=== PATIENT | male | born 1960 | race Caucasian/White ===

== ENCOUNTER 2021-04-18 15:43 | Emergency (ER) | payer BC | END 2021-04-18 18:59 | disposition left against medical advice (07) | LOC: ERS 15:43 | DX: Z53.21 Procedure and treatment not carried out due to patient leaving prior to being seen by health care provider (principal) ==

== ENCOUNTER 2021-04-19 17:39 | Emergency (ER) | payer BC ==
[2021-04-19 19:42] LABS: #Lymphocytes 0.9 thou/uL (1.20-3.40); #Monocytes 0.4 thou/uL (0.11-0.59); #Neutrophils 3.5 thou/uL (1.40-6.50); %Basophils 0.6 % (0.0-1.0); %Eosinophils 0.8 % (0.0-10.0); %Lymphocytes 19.1 % (21.0-51.0); %Monocytes 8.3 % (0.0-10.0); %Neutrophils 71.2 % (42.0-75.0); Mean Corpuscular HGB CONC 33.4 g/dL (32.0-36.0); Mean Corpuscular Hemoglobin 26.8 pg (27.0-31.0); Mean Corpuscular Volume 80.2 fL (78.0-98.0); Mean Platelet Volume 8.8 fL (7.4-10.4); Platelet Count 129 thou/uL (130-400); RBC Distribution Width 15.7 % (11.5-14.5); Red Blood Cell (RBC) Count 4.46 mill/uL (4.70-6.10); White Blood Cell (WBC) Count 4.9 thou/uL (4.8-10.8)
[2021-04-19 19:53] LABS: ALT (SGPT) 13 U/L (8-55); AST (SGOT) 23 U/L (5-34); Albumin 3.4 g/dL (3.4-4.8); Alkaline Phosphatase 62 U/L (40-110); Anion Gap 13 mmol/L (10-20); BUN (Urea Nitrogen) 37 mg/dL (8.4-25.7); Bilirubin, Total 0.5 mg/dL (0.2-1.2); Calc. Creatinine Clearance 0 mL/min (70-130); Calcium 8.2 mg/dL (7.8-10.44); Carbon Dioxide 20 mmol/L (23-31); Chloride 96 mmol/L (98-107); Globulin 2.9 g/dL (2.4-3.5); Glucose 96 mg/dL (80-115); Lipase 15 U/L (8-78); Potassium 4.4 mmol/L (3.5-5.1); Protein, Total 6.3 g/dL (5.8-8.1); Sodium 125 mmol/L (136-145)
== END 2021-04-19 20:40 | disposition home or self-care (01) ==
LOC: ERS 17:39
DX: E87.1 Hypo-osmolality and hyponatremia (principal); N17.9 Acute kidney failure, unspecified
CPT/HCPCS: 36415; 71045; 80053; 83690; 83880; 84484; 85025; 93005

== ENCOUNTER 2021-05-04 14:37 | Outpatient (CLI) | payer OTHER | END 2021-05-04 14:38 | disposition home or self-care (01) | LOC: BICULT 14:37 → BICRAD 14:38 | PROVIDERS: ATTEND Nurse Practitioner Family | DX: Z48.812 Encounter for surgical aftercare following surgery on the circulatory system (principal); Z98.890 Other specified postprocedural states | CPT/HCPCS: 71046 ==

== ENCOUNTER 2021-10-06 14:51 | Outpatient (CLI) | payer BC, OTHER | END 2021-10-06 14:52 | disposition home or self-care (01) | LOC: BICRAD 14:51 | PROVIDERS: ATTEND Nurse Practitioner Family | DX: R06.02 Shortness of breath (principal) | CPT/HCPCS: 71046 ==

== ENCOUNTER 2023-01-15 12:47 | Inpatient (IN) | payer BC, OTHER, SELFPAY ==
[2023-01-15] MEDS ORDERED: Cefepime 2 GM VIAL ONE (13:23)
[2023-01-15 14:26] LABS: Hematocrit 35.5 % (42.0-52.0); Mean Corpuscular HGB CONC 33.8 g/dL (32.0-36.0); Mean Corpuscular Hemoglobin 29.1 pg (27.0-31.0); RBC Distribution Width 19.3 % (11.5-14.5); Red Blood Cell (RBC) Count 4.13 mill/uL (4.70-6.10); White Blood Cell (WBC) Count 5.9 10x3/uL (4.8-10.8)
[2023-01-15 14:28] LABS: Delete Auto Diff?? YES; Manual Diff?? YES; Platelet Count 35 10x3/uL (130-400)
[2023-01-15 14:34] LABS: Prothrombin Time 23.2 sec (12.0-14.7)
[2023-01-15 14:35] LABS: PTT 52.5 sec (22.9-36.1)
[2023-01-15] MEDS ORDERED: Acetaminophen 500 MG TAB ONE (14:53)
[2023-01-15] MEDS ORDERED: NOREPINEPHRINE 8 MG/250 ML-D5W 250 ML ONE (14:53)
[2023-01-15 14:58] LABS: ALT (SGPT) 143 U/L (8-55); AST (SGOT) 196 U/L (5-34); Albumin 3.3 g/dL (3.4-4.8); Alkaline Phosphatase 478 U/L (40-110); Anion Gap 21 mmol/L (10-20); BUN (Urea Nitrogen) 63 mg/dL (8.4-25.7); Bilirubin, Total 7.9 mg/dL (0.2-1.2); Calc. Creatinine Clearance 0 mL/min (70-130); Calcium 8.5 mg/dL (7.8-10.44); Carbon Dioxide 21 mmol/L (23-31); Chloride 91 mmol/L (98-107); Estimated GFR 12; Glucose 77 mg/dL (80-115); Lipase 16 U/L (8-78); Potassium 4.7 mmol/L (3.5-5.1); Protein, Total 6.3 g/dL (5.8-8.1); Sodium 128 mmol/L (136-145); Troponin I 0.203 ng/mL (< 0.028)
[2023-01-15 15:00] LABS: Anisocytosis SLIGHT = 6-15 cells HPF (0-5); Band 45 % (5-11); Burr Cells SLIGHT = 2-5 cells HPF (0-1); CellaVision Operator ID LAB.MJL; Dohle Bodies SLIGHT; Large Platelets 1.9 % (0-5); Lymphocytes 2 % (21-51); Metamyelocyte 6 % (0-0); Monocytes 7 % (0-10); Neutrophil 40 % (42-75); Ovalocytes SLIGHT = 2-5 cells HPF (0-1); Platelet Adequacy Comment Platelets Decreased; Poikilocytosis SLIGHT = 6-15 cells HPF (0-5); Polychromasia SLIGHT = 2-3 cells HPF (0-2); Reactive Lymphocytes 1 % (0-10); Reflex for Review?? YES; Total Cell Count 105; Vacuoles SLIGHT
[2023-01-15 15:50] LABS: Bilirubin Moderate (Negative); Blood, Urine Trace (Negative); Glucose, Urine (Dipstick) 100 mg/dL (Negative); Ketone, Urine Negative (Negative); Leukocyte Negative (Negative); Nitrite Negative (Negative); Protein, Urine (Dipstick) Trace mg/dL (Neg-Trace); Urobilinogen 0.2 mg/dL (Less than 2)
[2023-01-15 15:51] LABS: Clarity Clear (Clear)
[2023-01-15 16:00] LABS: Bacteria/HPF 1+ HPF (None Seen); CAUTI Indications for Culture Immunosuppressed; RBC/HPF 0-3 HPF (0-3); Renal Epithelial 0-3 HPF (None Seen); Squamous Epithelial 0-3 HPF (0-3)
[2023-01-15 16:01] LABS: White Blood Cell Cast 0-3 LPF (None Seen)
[2023-01-15 16:02] LABS: Urine Culture Reflex Yes Yes
[2023-01-15] MEDS ORDERED: Ondansetron PF 4 MG/2 ML Vial IVP PRN (16:36)
[2023-01-15] MEDS ORDERED: Calcium Carbonate 500 MG ChewTAB PO PRN (16:36)
[2023-01-15] MEDS ORDERED: NOREPINEPHRINE 8 MG/250 ML-D5W 250 ML IVPB SCH (16:45)
[2023-01-15] MEDS ORDERED: Sodium Chloride 0.9% 1,000 ML IV SCH ×2 (16:59→20:15)
[2023-01-15] MEDS ORDERED: Phytonadione 10 MG/ML AMP SC SCH (17:15)
[2023-01-15 17:42] LABS: Troponin I 0.131 ng/mL (< 0.028)
[2023-01-15 18:05] LABS: Lactic Acid 1.6 mmol/L (0.5-2.2)
[2023-01-15] MEDS ORDERED: Vancomycin Dose by Levels Sliding Scale (Wt 71-99) FS SCH (18:15)
[2023-01-15 18:21] LABS: HBCM Index 0.06 S/CO (0-0.79); HBSAg Index 0.73 S/CO (0-0.99); Hep A IgM AB Non-Reactive S/CO (NonReactive); Hep A IgM S/CO 0.23 S/CO (0-0.79); Hep B Surf Ag Non-Reactive S/CO (NonReactive); Hep C IgG Ab Non-Reactive S/CO (NonReactive); Hep C Index 0.09 S/CO (0-0.79); Hepatitis B Core IgM Abs Non-Reactive S/CO (NonReactive)
[2023-01-15 19:36] LABS: Troponin I 0.131 ng/mL (< 0.028)
[2023-01-15] MEDS: Tacrolimus 0.5 MG CAP PO SCH (20:45)
[2023-01-15] MEDS: Tacrolimus 1 MG CAP PO SCH ×2 (20:45→20:54)
[2023-01-15] MEDS: Acetaminophen 325 MG TAB PO PRN (20:52)
[2023-01-15] MEDS ORDERED: TICAGRELOR 90 MG TABLET PO SCH (21:00)
[2023-01-15] MEDS: metroNIDAZOLE 500 MG in Premix Bag 1 BAG IVPB SCH (21:42)
[2023-01-15] MEDS ORDERED: Cefepime 2 GM in Sodium Chloride 0.9% 100 ML IVPB SCH (22:00)
[2023-01-15] MEDS ORDERED: Sodium Chloride 0.9% 500 ML IV SCH (22:45)
[2023-01-16] MEDS: Sodium Chloride 0.9% 1,000 ML IV SCH ×5 (01:30→23:46)
[2023-01-16 03:16] LABS: Hematocrit 30.8 % (42.0-52.0); Hemoglobin 10.3 g/dL (14.0-18.0); Mean Corpuscular HGB CONC 33.4 g/dL (32.0-36.0); Mean Corpuscular Hemoglobin 29.3 pg (27.0-31.0); Mean Corpuscular Volume 87.5 fl (78.0-98.0); RBC Distribution Width 19.7 % (11.5-14.5); Red Blood Cell (RBC) Count 3.52 mill/uL (4.70-6.10); White Blood Cell (WBC) Count 4.9 10x3/uL (4.8-10.8)
[2023-01-16 03:22] LABS: Platelet Count 33 10x3/uL (130-400)
[2023-01-16 03:24] LABS: Delete Auto Diff?? YES; Manual Diff?? YES
[2023-01-16] MEDS: Acetaminophen 325 MG TAB PO PRN ×3 (03:33→20:08)
[2023-01-16 03:38] LABS: Albumin 2.5 g/dL (3.4-4.8)
[2023-01-16 03:39] LABS: Chloride 102 mmol/L (98-107); Potassium 3.8 mmol/L (3.5-5.1); Sodium 131 mmol/L (136-145)
[2023-01-16 03:40] LABS: Calcium 7.4 mg/dL (7.8-10.44); Glucose 115 mg/dL (80-115)
[2023-01-16 03:41] LABS: Globulin 2.4 g/dL (2.4-3.5); Protein, Total 4.9 g/dL (5.8-8.1)
[2023-01-16 03:42] LABS: Anion Gap 12 mmol/L (10-20); Bilirubin, Total 6.2 mg/dL (0.2-1.2); Carbon Dioxide 21 mmol/L (23-31)
[2023-01-16 03:43] LABS: Alkaline Phosphatase 314 U/L (40-110)
[2023-01-16 03:44] LABS: Calc. Creatinine Clearance 22 mL/min (70-130); Estimated GFR 16
[2023-01-16 03:45] LABS: BUN (Urea Nitrogen) 56 mg/dL (8.4-25.7)
[2023-01-16 03:46] LABS: ALT (SGPT) 105 U/L (8-55); AST (SGOT) 137 U/L (5-34); Bilirubin, Direct 4.9 mg/dL (0.1-0.3); INR-International Normal Ratio 1.9; Prothrombin Time 22.5 sec (12.0-14.7)
[2023-01-16 03:48] LABS: Band 33 % (5-11); CellaVision Operator ID LAB.CLH1; Eosinophils 1 % (0-10); Hypochromia SLIGHT = 6-15 cells HPF (0-5); Large Platelets 3.9 % (0-5); Lymphocytes 5 % (21-51); Metamyelocyte 2 % (0-0); Monocytes 1 % (0-10); Neutrophil 58 % (42-75); Nucleated RBC (Manual Ct) 1 % (0); Platelet Adequacy Comment Platelets Decreased; Polychromasia SLIGHT = 2-3 cells HPF (0-2); Total Cell Count 102
[2023-01-16 04:32] LABS: T4 6.52 ug/dL (4.87-11.72); Thyroid Stimulating Hormone 0.846 uIU/mL (0.35-4.94)
[2023-01-16] MEDS: metroNIDAZOLE 500 MG in Premix Bag 1 BAG IVPB SCH (05:26)
[2023-01-16] MEDS: Levothyroxine 150 MCG TAB PO SCH (05:26)
[2023-01-16] MEDS: Hydrocortisone Sod Succ/PF 100 mg/2 ml Vial IVP SCH ×4 (06:14→23:47)
[2023-01-16] MEDS ORDERED: fentaNYL 50 mcg/mL 1 mL Vial SLOW IVP PRN (06:30)
[2023-01-16] MEDS ORDERED: Multivitamin W/ Minerals 1 TAB PO SCH (09:00)
[2023-01-16] MEDS ORDERED: Aspirin Chewable 81 MG TAB PO SCH (09:00)
[2023-01-16] MEDS ORDERED: EVEROLIMUS 1 MG PO SCH (09:00)
[2023-01-16] MEDS: Tacrolimus 1 MG CAP PO SCH ×3 (09:37→20:09)
[2023-01-16] MEDS: Tacrolimus 0.5 MG CAP PO SCH (10:53)
[2023-01-16] MEDS ORDERED: Cefepime 1 GM in Sodium Chloride 0.9% 100 ML IVPB SCH (13:00)
[2023-01-16 13:28] LABS: Campy jejuni + coli by PCR Negative (Negative); STEC Shiga Toxin 1+2 Negative (Negative); Salmonella spp. by PCR Negative (Negative); Shigella spp + EIEC by PCR Negative (Negative)
[2023-01-16] MEDS: Magnesium Oxide 250 MG TAB PO SCH (20:08)
[2023-01-16] MEDS: Multivitamin W/ Minerals 1 TAB PO SCH (20:09)
[2023-01-16] MEDS: Calcium Carbonate + Vit D 250 MG TAB PO SCH (20:12)
[2023-01-16] MEDS: EVEROLIMUS 0.5 MG PO SCH (20:12)
[2023-01-17] MEDS ORDERED: Acetaminophen 325 MG TAB ONE (03:07)
[2023-01-17 04:59] LABS: Hemoglobin 10.3 g/dL (14.0-18.0); Mean Corpuscular HGB CONC 33.2 g/dL (32.0-36.0); Mean Corpuscular Hemoglobin 28.5 pg (27.0-31.0); Mean Corpuscular Volume 85.6 fl (78.0-98.0); Red Blood Cell (RBC) Count 3.62 mill/uL (4.70-6.10); White Blood Cell (WBC) Count 7.2 10x3/uL (4.8-10.8)
[2023-01-17] MEDS: Sodium Chloride 0.9% 1,000 ML IV SCH ×4 (05:05→20:35)
[2023-01-17 05:15] LABS: Delete Auto Diff?? YES; Manual Diff?? YES; Platelet Count 39 10x3/uL (130-400)
[2023-01-17 05:17] LABS: INR-International Normal Ratio 1.3; PTT 53.8 sec (22.9-36.1); Prothrombin Time 16.9 sec (12.0-14.7)
[2023-01-17 06:04] LABS: Anisocytosis MODERATE=16-30 cells HPF (0-5); Band 12 % (5-11); Burr Cells SLIGHT = 2-5 cells HPF (0-1); CellaVision Operator ID lab.sh2; Large Platelets 7.8 % (0-5); Lymphocytes 1 % (21-51); Macrocytosis SLIGHT = 6-15 cells HPF (0-5); Monocytes 6 % (0-10); Neutrophil 81 % (42-75); Ovalocytes SLIGHT = 2-5 cells HPF (0-1); Platelet Adequacy Comment Significant decrease; Poikilocytosis SLIGHT = 6-15 cells HPF (0-5); Polychromasia SLIGHT = 2-3 cells HPF (0-2); Smudge Cells 4.9 %; Total Cell Count 102
[2023-01-17] MEDS: Hydrocortisone Sod Succ/PF 100 mg/2 ml Vial IVP SCH ×3 (06:05→17:52)
[2023-01-17] MEDS: Levothyroxine 150 MCG TAB PO SCH (06:05)
[2023-01-17 06:52] LABS: ALT (SGPT) 83 U/L (8-55); AST (SGOT) 100 U/L (5-34); Albumin 2.4 g/dL (3.4-4.8); Alkaline Phosphatase 266 U/L (40-110); Anion Gap 12 mmol/L (10-20); BUN (Urea Nitrogen) 45 mg/dL (8.4-25.7); Calc. Creatinine Clearance 36 mL/min (70-130); Calcium 8.4 mg/dL (7.8-10.44); Carbon Dioxide 20 mmol/L (23-31); Chloride 109 mmol/L (98-107); Estimated GFR 27; Globulin 2.4 g/dL (2.4-3.5); Glucose 112 mg/dL (80-115); Potassium 3.8 mmol/L (3.5-5.1); Protein, Total 4.8 g/dL (5.8-8.1); Sodium 137 mmol/L (136-145)
[2023-01-17] MEDS: Magnesium Oxide 250 MG TAB PO SCH ×2 (08:34→20:36)
[2023-01-17] MEDS: EVEROLIMUS 0.5 MG PO SCH ×2 (08:36→20:36)
[2023-01-17] MEDS: Calcium Carbonate + Vit D 250 MG TAB PO SCH ×2 (08:36→20:36)
[2023-01-17] MEDS: Tacrolimus 1 MG CAP PO SCH ×3 (08:57→20:37)
[2023-01-17] MEDS: Cefepime 1 GM in Sodium Chloride 0.9% 100 ML IVPB SCH ×2 (11:28→21:34)
[2023-01-17] MEDS ORDERED: Bisacodyl 10 MG SUPP PR PRN (15:45)
[2023-01-17] MEDS: Multivitamin W/ Minerals 1 TAB PO SCH (20:36)
[2023-01-17] MEDS: Bisacodyl 5 MG TAB PO PRN (20:47)
[2023-01-18] MEDS: Hydrocortisone Sod Succ/PF 100 mg/2 ml Vial IVP SCH ×2 (00:21→06:14)
[2023-01-18] MEDS: Sodium Chloride 0.9% 1,000 ML IV SCH ×2 (01:54→06:14)
[2023-01-18 05:41] LABS: #Monocytes 0.2 thou/uL (0.11-0.59); #Neutrophils 5.5 thou/uL (1.40-6.50); %Basophils 0.2 % (0.0-1.0); %Lymphocytes 4.5 % (21.0-51.0); %Monocytes 3.5 % (0.0-10.0); %Neutrophils 91.3 % (42.0-75.0); Mean Corpuscular HGB CONC 33.3 g/dL (32.0-36.0); Mean Platelet Volume 11.5 fL (7.4-10.4); RBC Distribution Width 20.6 % (11.5-14.5); Red Blood Cell (RBC) Count 3.45 mill/uL (4.70-6.10)
[2023-01-18 05:53] LABS: Platelet Count 44 10x3/uL (130-400)
[2023-01-18 06:05] LABS: ALT (SGPT) 64 U/L (8-55); AST (SGOT) 78 U/L (5-34); Albumin 2.3 g/dL (3.4-4.8); Alkaline Phosphatase 297 U/L (40-110); Anion Gap 11 mmol/L (10-20); BUN (Urea Nitrogen) 33 mg/dL (8.4-25.7); Bilirubin, Total 2.9 mg/dL (0.2-1.2); Calc. Creatinine Clearance 58 mL/min (70-130); Calcium 8.1 mg/dL (7.8-10.44); Carbon Dioxide 17 mmol/L (23-31); Chloride 114 mmol/L (98-107); Estimated GFR 47; Globulin 2.3 g/dL (2.4-3.5); Glucose 105 mg/dL (80-115); Potassium 3.7 mmol/L (3.5-5.1); Protein, Total 4.6 g/dL (5.8-8.1); Sodium 138 mmol/L (136-145)
[2023-01-18] MEDS: Levothyroxine 150 MCG TAB PO SCH (06:14)
[2023-01-18] MEDS: Magnesium Oxide 250 MG TAB PO SCH ×2 (09:16→20:24)
[2023-01-18] MEDS: Calcium Carbonate + Vit D 250 MG TAB PO SCH ×2 (09:16→20:24)
[2023-01-18] MEDS: EVEROLIMUS 0.5 MG PO SCH ×2 (09:17→20:23)
[2023-01-18] MEDS: Tacrolimus 1 MG CAP PO SCH ×2 (09:18→21:13)
[2023-01-18] MEDS: Cefepime 1 GM in Sodium Chloride 0.9% 100 ML IVPB SCH ×2 (09:18→21:13)
[2023-01-18] MEDS ORDERED: predniSONE 20 MG TAB PO SCH (09:30)
[2023-01-18] MEDS ORDERED: Polyethylene Glycol 3350 17 GM Packet PO SCH (12:30)
[2023-01-18 16:36] LABS: Adenovirus F 40-41 Not Detected (Not Detected); Astrovirus Not Detected (Not Detected); C. difficile toxin A+B Not Detected (Not Detected); Campylobacter by PCR Not Detected (Not Detected); Cryptosporidium Not Detected (Not Detected); Cyclospora cayetanensis Not Detected (Not Detected); Entamoeba histolytica Not Detected (Not Detected); Enteroaggregative E. coli Not Detected (Not Detected); Enteropathogenic E. coli Not Detected (Not Detected); Enterotoxigenic E. coli Not Detected (Not Detected); Giardia lamblia Not Detected (Not Detected); Norovirus GI-GII Not Detected (Not Detected); Plesiomonas shigelloides Not Detected (Not Detected); Rotavirus A Not Detected (Not Detected); Salmonella Not Detected (Not Detected); Sapovirus Not Detected (Not Detected); Shiga-toxin-producing E coli Not Detected (Not Detected); Shigella/Enteroinvasive E coli Not Detected (Not Detected); Vibrio Not Detected (Not Detected); Vibrio cholerae Not Detected (Not Detected); Yersinia enterocolitica Not Detected (Not Detected)
[2023-01-18] MEDS: Multivitamin W/ Minerals 1 TAB PO SCH (20:24)
[2023-01-18] MEDS: Polyethylene Glycol 3350 17 GM Packet PO SCH (20:25)
[2023-01-18] MEDS: Bisacodyl 5 MG TAB PO PRN (21:13)
[2023-01-19] MEDS: Levothyroxine 150 MCG TAB PO SCH (05:09)
[2023-01-19 05:12] VITALS: BMI 28.5
[2023-01-19 05:56] LABS: #Monocytes 0.3 thou/uL (0.11-0.59); #Neutrophils 5.5 thou/uL (1.40-6.50); %Basophils 0.2 % (0.0-1.0); %Eosinophils 0.5 % (0.0-10.0); %Lymphocytes 6.8 % (21.0-51.0); %Monocytes 5.1 % (0.0-10.0); %Neutrophils 86.8 % (42.0-75.0); Hemoglobin 10.7 g/dL (14.0-18.0); Mean Corpuscular HGB CONC 33.4 g/dL (32.0-36.0); Mean Corpuscular Hemoglobin 29.3 pg (27.0-31.0); Mean Corpuscular Volume 87.7 fl (78.0-98.0); Mean Platelet Volume 11.9 fL (7.4-10.4); RBC Distribution Width 21.1 % (11.5-14.5); Red Blood Cell (RBC) Count 3.65 mill/uL (4.70-6.10); White Blood Cell (WBC) Count 6.3 10x3/uL (4.8-10.8)
[2023-01-19 06:23] LABS: ALT (SGPT) 86 U/L (8-55); AST (SGOT) 109 U/L (5-34); Albumin 2.5 g/dL (3.4-4.8); Alkaline Phosphatase 468 U/L (40-110); Anion Gap 11 mmol/L (10-20); BUN (Urea Nitrogen) 33 mg/dL (8.4-25.7); Bilirubin, Total 2.2 mg/dL (0.2-1.2); Calc. Creatinine Clearance 72 mL/min (70-130); Calcium 8.2 mg/dL (7.8-10.44); Carbon Dioxide 17 mmol/L (23-31); Chloride 113 mmol/L (98-107); Estimated GFR 56; Globulin 2.5 g/dL (2.4-3.5); Glucose 87 mg/dL (80-115); Potassium 3.9 mmol/L (3.5-5.1); Sodium 137 mmol/L (136-145)
[2023-01-19 06:42] LABS: Platelet Count 58 10x3/uL (130-400)
[2023-01-19] MEDS: Calcium Carbonate + Vit D 250 MG TAB PO SCH (08:02)
[2023-01-19] MEDS: Magnesium Oxide 250 MG TAB PO SCH (08:02)
[2023-01-19] MEDS: Tacrolimus 1 MG CAP PO SCH (08:03)
[2023-01-19] MEDS: EVEROLIMUS 0.5 MG PO SCH ×2 (08:04→08:10)
[2023-01-19] MEDS: Polyethylene Glycol 3350 17 GM Packet PO SCH (08:09)
[2023-01-19] MEDS ORDERED: predniSONE 20 MG TAB PO SCH (09:00)
[2023-01-19] MEDS: Cefepime 1 GM in Sodium Chloride 0.9% 100 ML IVPB SCH (10:03)
[2023-01-19 12:02] VITALS: BP 127/84; TEMP 98.3
[2023-01-19 14:40] LABS: Tacrolimus 4.3 ng/mL (2.0-20.0)
[2023-01-20] MEDS ORDERED: Ergocalciferol 1.25 MG(50,000 UNITS) CAP PO SCH (09:00)
== END 2023-01-19 15:31 | disposition home or self-care (01) | DRG 871 ==
LOC: ERS 12:47 → SUATTDRO 12:47 → CCU 17:24 → T4-A 01-18 18:49
PROVIDERS: ADMIT Internal Medicine; ATTEND Internal Medicine
PROC: 06HY33Z Insertion of Infusion Device into Lower Vein, Percutaneous Approach (ICD-10-PCS; principal; 2023-01-15)
PROC: 3E03329 Introduction of Other Anti-infective into Peripheral Vein, Percutaneous Approach (ICD-10-PCS; 2023-01-15)
PROC: 3E033XZ Introduction of Vasopressor into Peripheral Vein, Percutaneous Approach (ICD-10-PCS; 2023-01-15)
DX: A41.51 Sepsis due to Escherichia coli [E. coli] (principal); I21.A1 Myocardial infarction type 2; K72.00 Acute and subacute hepatic failure without coma; K76.7 Hepatorenal syndrome; R65.21 Severe sepsis with septic shock; N17.0 Acute kidney failure with tubular necrosis; E87.1 Hypo-osmolality and hyponatremia; E87.20 Acidosis, unspecified; J90 Pleural effusion, not elsewhere classified; I31.39 Other pericardial effusion (noninflammatory); B17.9 Acute viral hepatitis, unspecified; C22.8 Malignant neoplasm of liver, primary, unspecified as to type; T86.49 Other complications of liver transplant; A09 Infectious gastroenteritis and colitis, unspecified; K52.1 Toxic gastroenteritis and colitis; D84.9 Immunodeficiency, unspecified; K56.7 Ileus, unspecified; K56.600 Partial intestinal obstruction, unspecified as to cause; I25.10 Atherosclerotic heart disease of native coronary artery without angina pectoris; D64.9 Anemia, unspecified; D69.6 Thrombocytopenia, unspecified; E86.0 Dehydration; E87.6 Hypokalemia; K72.90 Hepatic failure, unspecified without coma; K59.03 Drug induced constipation; Z79.899 Other long term (current) drug therapy; Z79.82 Long term (current) use of aspirin; Z95.5 Presence of coronary angioplasty implant and graft; I25.2 Old myocardial infarction
CPT/HCPCS: 36415; 71045; 74176; 80053; 80074; 80197; 80307; 81001; 82140; 82248; 82533; 83605; 83630; 83690; 84145; 84436; 84443; 84484; 85025; 85060; 85610; 85730; 86850; 86900; 86901; 87040; 87077; 87086; 87149; 87186; 87324; 87328; 87329; 87449; 87505; 87507; 93005; J0692; J1720; J3010; J3430; J3490; J7030; J7050; J7507; J7512

== ENCOUNTER 2023-02-01 20:28 | Inpatient (IN) | payer OTHER ==
[2023-02-01 21:21] LABS: #Monocytes 0.3 thou/uL (0.11-0.59); #Neutrophils 2.9 thou/uL (1.40-6.50); %Basophils 0.3 % (0.0-1.0); %Eosinophils 1.1 % (0.0-10.0); %Lymphocytes 4.9 % (21.0-51.0); %Monocytes 9.7 % (0.0-10.0); %Neutrophils 83.7 % (42.0-75.0); Hematocrit 32.2 % (42.0-52.0); Hemoglobin 10.2 g/dL (14.0-18.0); Mean Corpuscular HGB CONC 31.7 g/dL (32.0-36.0); Mean Corpuscular Hemoglobin 29.4 pg (27.0-31.0); Mean Corpuscular Volume 92.8 fl (78.0-98.0); Mean Platelet Volume 10.6 fL (7.4-10.4); Platelet Count 102 10x3/uL (130-400); RBC Distribution Width 17.4 % (11.5-14.5); Red Blood Cell (RBC) Count 3.47 mill/uL (4.70-6.10); White Blood Cell (WBC) Count 3.5 10x3/uL (4.8-10.8)
[2023-02-01 22:21] LABS: SARS-CoV-2 NAA Rapid Test Not Detected (NotDetected)
[2023-02-01 22:35] LABS: Albumin 2.9 g/dL (3.4-4.8)
[2023-02-01 22:37] LABS: Calcium 8.1 mg/dL (7.8-10.44); Chloride 102 mmol/L (98-107); Potassium 3.8 mmol/L (3.5-5.1); Sodium 134 mmol/L (136-145)
[2023-02-01 22:38] LABS: Globulin 2.5 g/dL (2.4-3.5); Glucose 107 mg/dL (80-115); Protein, Total 5.4 g/dL (5.8-8.1)
[2023-02-01 22:39] LABS: Anion Gap 11 mmol/L (10-20); Carbon Dioxide 25 mmol/L (23-31)
[2023-02-01 22:40] LABS: Bilirubin, Total 3.9 mg/dL (0.2-1.2)
[2023-02-01 22:41] LABS: Alkaline Phosphatase 900 U/L (40-110); Calc. Creatinine Clearance 0 mL/min (70-130); Estimated GFR 81
[2023-02-01 22:42] LABS: BUN (Urea Nitrogen) 7 mg/dL (8.4-25.7)
[2023-02-01 22:43] LABS: AST (SGOT) 171 U/L (5-34)
[2023-02-01 22:44] LABS: ALT (SGPT) 110 U/L (8-55)
[2023-02-01] MEDS ORDERED: Cefepime 2 GM VIAL ONE (23:35)
[2023-02-01] MEDS ORDERED: Sodium Chloride 0.9% 100 ML ONE (23:35)
[2023-02-02 00:03] LABS: Bacteria/HPF None Seen HPF (None Seen); Bilirubin 1+ (Negative); Blood, Urine Negative (Negative); CAUTI Indications for Culture Fever or rigors; Clarity Clear (Clear); Glucose, Urine (Dipstick) Normal (Negative); Ketone, Urine Negative (Negative); Leukocyte Negative Leu/uL (Negative); Nitrite Negative (Negative); Protein, Urine (Dipstick) Negative (Neg-Trace); RBC/HPF 0-3 HPF (0-3); Specific Gravity, Urine 1.007 (1.002-1.036); Squamous Epithelial 0-3 HPF (0-3); Urobilinogen Normal mg/dL (Less than 2); WBC/HPF 0-3 HPF (0-3); pH, Urine 6.5 (5.0-9.0)
[2023-02-02 00:07] LABS: Urine Culture Reflex No No
[2023-02-02] MEDS ORDERED: Vancomycin 1 GM/200 ML (FROZEN) BAG ONE (00:14)
[2023-02-02] MEDS ORDERED: Ondansetron ODT 4 MG TAB PO PRN (00:58)
[2023-02-02] MEDS ORDERED: Acetaminophen 325 MG TAB ONE (01:38)
[2023-02-02] MEDS: Sodium Chloride 0.9% 1,000 ML IV SCH ×2 (03:38→10:45)
[2023-02-02] MEDS ORDERED: Sodium Chloride 0.9% 500 ML IV SCH ×2 (04:15→05:00)
[2023-02-02] MEDS: Levothyroxine 150 MCG TAB PO SCH (04:43)
[2023-02-02 04:46] LABS: #Monocytes 0.4 thou/uL (0.11-0.59); #Neutrophils 2.8 thou/uL (1.40-6.50); %Basophils 0.3 % (0.0-1.0); %Eosinophils 1.2 % (0.0-10.0); %Lymphocytes 4.8 % (21.0-51.0); %Neutrophils 82.1 % (42.0-75.0); Hemoglobin 7.9 g/dL (14.0-18.0); Mean Corpuscular HGB CONC 31.6 g/dL (32.0-36.0); Mean Corpuscular Hemoglobin 29.4 pg (27.0-31.0); Mean Corpuscular Volume 92.9 fl (78.0-98.0); Mean Platelet Volume 11.1 fL (7.4-10.4); RBC Distribution Width 17.5 % (11.5-14.5); Red Blood Cell (RBC) Count 2.69 mill/uL (4.70-6.10); White Blood Cell (WBC) Count 3.4 10x3/uL (4.8-10.8)
[2023-02-02 05:11] VITALS: BMI 25.7
[2023-02-02 05:26] LABS: ALT (SGPT) 98 U/L (8-55); AST (SGOT) 138 U/L (5-34); Albumin 2.4 g/dL (3.4-4.8); Alkaline Phosphatase 735 U/L (40-110); Anion Gap 12 mmol/L (10-20); BUN (Urea Nitrogen) 9 mg/dL (8.4-25.7); Bilirubin, Total 4.2 mg/dL (0.2-1.2); Calc. Creatinine Clearance 71 mL/min (70-130); Calcium 7.4 mg/dL (7.8-10.44); Carbon Dioxide 21 mmol/L (23-31); Chloride 104 mmol/L (98-107); Estimated GFR 63; Globulin 2.2 g/dL (2.4-3.5); Glucose 120 mg/dL (80-115); Platelet Count 67 10x3/uL (130-400); Potassium 3.9 mmol/L (3.5-5.1); Protein, Total 4.6 g/dL (5.8-8.1); Sodium 133 mmol/L (136-145)
[2023-02-02 06:23] LABS: Lactic Acid 0.9 mmol/L (0.5-2.2)
[2023-02-02] MEDS: Acetaminophen 325 MG TAB PO PRN (06:42)
[2023-02-02] MEDS ORDERED: EVEROLIMUS 1 MG PO SCH (09:00)
[2023-02-02] MEDS ORDERED: Apixaban 5 MG TAB PO SCH (09:00)
[2023-02-02] MEDS ORDERED: Aspirin Chewable 81 MG TAB PO SCH (09:00)
[2023-02-02] MEDS ORDERED: Ergocalciferol 1.25 MG(50,000 UNITS) CAP PO SCH (09:00)
[2023-02-02] MEDS ORDERED: Multivit, Therapeutic 1 TAB PO SCH (09:00)
[2023-02-02] MEDS: Magnesium Oxide 250 MG TAB PO SCH ×2 (09:02→20:00)
[2023-02-02] MEDS: Tacrolimus 1 MG CAP PO SCH ×2 (09:03→20:00)
[2023-02-02] MEDS: Cefepime 1 GM in Sodium Chloride 0.9% 100 ML IVPB SCH ×2 (09:03→19:59)
[2023-02-02] MEDS: Floranex 1 GM Packet PO SCH (10:49)
[2023-02-02] MEDS: metroNIDAZOLE 500 MG in Premix 1 BAG IVPB SCH ×2 (18:19→23:45)
[2023-02-02] MEDS ORDERED: ALIROCUMAB 75 MG/ML SC SCH (21:00)
[2023-02-03] MEDS: Acetaminophen 325 MG TAB PO PRN ×2 (00:47→06:04)
[2023-02-03 04:39] LABS: Hematocrit 25.7 % (42.0-52.0); Hemoglobin 8.1 g/dL (14.0-18.0); Mean Corpuscular HGB CONC 31.5 g/dL (32.0-36.0); Mean Corpuscular Hemoglobin 29.6 pg (27.0-31.0); Mean Corpuscular Volume 93.8 fl (78.0-98.0); Red Blood Cell (RBC) Count 2.74 mill/uL (4.70-6.10); White Blood Cell (WBC) Count 4.9 10x3/uL (4.8-10.8)
[2023-02-03 04:51] LABS: Delete Auto Diff?? YES; Manual Diff?? YES; Platelet Count 71 10x3/uL (130-400)
[2023-02-03 05:02] LABS: Anion Gap 12 mmol/L (10-20); BUN (Urea Nitrogen) 17 mg/dL (8.4-25.7); Calc. Creatinine Clearance 55 mL/min (70-130); Calcium 7.6 mg/dL (7.8-10.44); Carbon Dioxide 22 mmol/L (23-31); Chloride 105 mmol/L (98-107); Estimated GFR 46; Glucose 71 mg/dL (80-115); Potassium 4.1 mmol/L (3.5-5.1); Sodium 135 mmol/L (136-145)
[2023-02-03 05:56] LABS: Anisocytosis SLIGHT = 6-15 cells HPF (0-5); Band 32 % (5-11); CellaVision Operator ID LAB.JMM; Eosinophils 3 % (0-10); Large Platelets 11.9 % (0-5); Lymphocytes 4 % (21-51); Macrocytosis SLIGHT = 6-15 cells HPF (0-5); Monocytes 4 % (0-10); Neutrophil 56 % (42-75); Platelet Adequacy Comment Significant decrease; Polychromasia SLIGHT = 2-3 cells HPF (0-2); Smudge Cells 5.9 %; Total Cell Count 101
[2023-02-03] MEDS: Levothyroxine 150 MCG TAB PO SCH (06:04)
[2023-02-03] MEDS: metroNIDAZOLE 500 MG in Premix 1 BAG IVPB SCH ×3 (06:05→17:33)
[2023-02-03] MEDS: Magnesium Oxide 250 MG TAB PO SCH ×2 (08:20→20:02)
[2023-02-03] MEDS: Tacrolimus 1 MG CAP PO SCH ×2 (08:20→20:02)
[2023-02-03] MEDS: Cefepime 1 GM in Sodium Chloride 0.9% 100 ML IVPB SCH (08:21)
[2023-02-03] MEDS: Floranex 1 GM Packet PO SCH (08:24)
[2023-02-03 09:57] LABS: ALT (SGPT) 83 U/L (8-55); AST (SGOT) 95 U/L (5-34); Albumin 2.7 g/dL (3.4-4.8); Alkaline Phosphatase 598 U/L (40-110); Bilirubin, Direct 4.2 mg/dL (0.1-0.3); Bilirubin, Total 4.8 mg/dL (0.2-1.2); Protein, Total 4.9 g/dL (5.8-8.1)
[2023-02-03] MEDS: Apixaban 5 MG TAB PO SCH (20:02)
[2023-02-03] MEDS: Aspirin Chewable 81 MG TAB PO SCH (20:02)
[2023-02-03] MEDS: cefTRIAXone\\ROCEPHIN 2 GM in Sodium Chloride 0.9% 100 ML IVPB SCH (20:03)
[2023-02-03] MEDS: Multivit, Therapeutic 1 TAB PO SCH (20:03)
[2023-02-04] MEDS: metroNIDAZOLE 500 MG in Premix 1 BAG IVPB SCH ×3 (00:07→12:37)
[2023-02-04 05:10] LABS: #Eosinphils 0.1 thou/uL (0.0-0.7); #Monocytes 0.4 thou/uL (0.11-0.59); #Neutrophils 3.8 thou/uL (1.40-6.50); %Basophils 0.2 % (0.0-1.0); %Eosinophils 1.9 % (0.0-10.0); %Lymphocytes 8.2 % (21.0-51.0); %Monocytes 7.5 % (0.0-10.0); %Neutrophils 81.8 % (42.0-75.0); Hemoglobin 8.1 g/dL (14.0-18.0); Mean Corpuscular HGB CONC 32.4 g/dL (32.0-36.0); Mean Corpuscular Hemoglobin 29.8 pg (27.0-31.0); Mean Corpuscular Volume 91.9 fl (78.0-98.0); Mean Platelet Volume 11.6 fL (7.4-10.4); RBC Distribution Width 17.7 % (11.5-14.5); Red Blood Cell (RBC) Count 2.72 mill/uL (4.70-6.10); White Blood Cell (WBC) Count 4.7 10x3/uL (4.8-10.8)
[2023-02-04 05:29] LABS: Platelet Count 93 10x3/uL (130-400)
[2023-02-04] MEDS: Levothyroxine 150 MCG TAB PO SCH (05:45)
[2023-02-04 05:55] LABS: ALT (SGPT) 66 U/L (8-55); AST (SGOT) 62 U/L (5-34); Albumin 2.5 g/dL (3.4-4.8); Alkaline Phosphatase 526 U/L (40-110); Anion Gap 12 mmol/L (10-20); BUN (Urea Nitrogen) 14 mg/dL (8.4-25.7); Bilirubin, Total 3.3 mg/dL (0.2-1.2); Calc. Creatinine Clearance 77 mL/min (70-130); Calcium 7.9 mg/dL (7.8-10.44); Carbon Dioxide 22 mmol/L (23-31); Chloride 107 mmol/L (98-107); Estimated GFR 69; Globulin 2.5 g/dL (2.4-3.5); Glucose 75 mg/dL (80-115); Potassium 3.5 mmol/L (3.5-5.1); Sodium 137 mmol/L (136-145)
[2023-02-04] MEDS: Magnesium Oxide 250 MG TAB PO SCH ×2 (09:16→20:57)
[2023-02-04] MEDS: Floranex 1 GM Packet PO SCH (09:16)
[2023-02-04] MEDS: Tacrolimus 1 MG CAP PO SCH ×2 (09:16→21:15)
[2023-02-04] MEDS: Apixaban 5 MG TAB PO SCH ×2 (09:17→21:01)
[2023-02-04] MEDS: cefTRIAXone\\ROCEPHIN 2 GM in Sodium Chloride 0.9% 100 ML IVPB SCH (20:55)
[2023-02-04] MEDS: Aspirin Chewable 81 MG TAB PO SCH (20:57)
[2023-02-04] MEDS: Multivit, Therapeutic 1 TAB PO SCH (20:57)
[2023-02-05] MEDS: Levothyroxine 150 MCG TAB PO SCH (05:29)
[2023-02-05] MEDS: Acetaminophen 325 MG TAB PO PRN (05:39)
[2023-02-05] MEDS: Floranex 1 GM Packet PO SCH (08:56)
[2023-02-05] MEDS: Magnesium Oxide 250 MG TAB PO SCH (08:57)
[2023-02-05] MEDS: Apixaban 5 MG TAB PO SCH (08:57)
[2023-02-05] MEDS: Tacrolimus 1 MG CAP PO SCH (08:58)
[2023-02-05 10:45] LABS: #Eosinphils 0.1 thou/uL (0.0-0.7); #Monocytes 0.3 thou/uL (0.11-0.59); #Neutrophils 1.9 thou/uL (1.40-6.50); %Basophils 0.4 % (0.0-1.0); %Lymphocytes 12.7 % (21.0-51.0); %Monocytes 11.2 % (0.0-10.0); %Neutrophils 72.3 % (42.0-75.0); Hematocrit 26.8 % (42.0-52.0); Hemoglobin 8.6 g/dL (14.0-18.0); Mean Corpuscular HGB CONC 32.1 g/dL (32.0-36.0); Mean Corpuscular Hemoglobin 29.8 pg (27.0-31.0); Mean Corpuscular Volume 92.7 fl (78.0-98.0); Mean Platelet Volume 11.3 fL (7.4-10.4); Platelet Count 90 10x3/uL (130-400); RBC Distribution Width 17.5 % (11.5-14.5); Red Blood Cell (RBC) Count 2.89 mill/uL (4.70-6.10); White Blood Cell (WBC) Count 2.7 10x3/uL (4.8-10.8)
[2023-02-05 11:13] LABS: ALT (SGPT) 50 U/L (8-55); AST (SGOT) 45 U/L (5-34); Albumin 2.7 g/dL (3.4-4.8); Alkaline Phosphatase 524 U/L (40-110); Anion Gap 8 mmol/L (10-20); BUN (Urea Nitrogen) 9 mg/dL (8.4-25.7); Calc. Creatinine Clearance 100 mL/min (70-130); Calcium 8.3 mg/dL (7.8-10.44); Carbon Dioxide 25 mmol/L (23-31); Chloride 107 mmol/L (98-107); Estimated GFR 94; Globulin 2.5 g/dL (2.4-3.5); Glucose 89 mg/dL (80-115); Potassium 3.6 mmol/L (3.5-5.1); Protein, Total 5.2 g/dL (5.8-8.1); Sodium 136 mmol/L (136-145)
[2023-02-05 16:00] VITALS: BP 120/78; TEMP 98.1
[2023-02-05] MEDS: cefTRIAXone\\ROCEPHIN 2 GM in Sodium Chloride 0.9% 100 ML IVPB SCH (16:47)
== END 2023-02-05 18:58 | disposition home or self-care (01) | DRG 872 ==
LOC: ERS 20:28 → 2SW 23:50 → OBSVTOIN 02-02 14:19 → T4-A 02-04 16:07
PROVIDERS: ADMIT Student in an Organized Health Care Education/Training Program; ATTEND Hospitalist
PROC: 3E03329 Introduction of Other Anti-infective into Peripheral Vein, Percutaneous Approach (ICD-10-PCS; 2023-02-02)
PROC: 02HV33Z Insertion of Infusion Device into Superior Vena Cava, Percutaneous Approach (ICD-10-PCS; principal; 2023-02-05)
PROC: B5181ZA Fluoroscopy of Superior Vena Cava using Low Osmolar Contrast, Guidance (ICD-10-PCS; 2023-02-05)
DX: A41.51 Sepsis due to Escherichia coli [E. coli] (principal); T86.49 Other complications of liver transplant; C22.8 Malignant neoplasm of liver, primary, unspecified as to type; D84.9 Immunodeficiency, unspecified; I82.411 Acute embolism and thrombosis of right femoral vein; N17.9 Acute kidney failure, unspecified; I25.10 Atherosclerotic heart disease of native coronary artery without angina pectoris; D64.9 Anemia, unspecified; D69.6 Thrombocytopenia, unspecified; I95.9 Hypotension, unspecified; Z20.822 Contact with and (suspected) exposure to COVID-19; R79.89 Other specified abnormal findings of blood chemistry; N18.9 Chronic kidney disease, unspecified; Y83.0 Surgical operation with transplant of whole organ as the cause of abnormal reaction of the patient, or of later complication, without mention of misadventure at the time of the procedure; I25.2 Old myocardial infarction; Z79.899 Other long term (current) drug therapy; Z79.890 Hormone replacement therapy; Z79.82 Long term (current) use of aspirin; Z90.49 Acquired absence of other specified parts of digestive tract; Z90.89 Acquired absence of other organs; Z86.718 Personal history of other venous thrombosis and embolism; Z92.21 Personal history of antineoplastic chemotherapy; Z85.46 Personal history of malignant neoplasm of prostate; Z92.3 Personal history of irradiation
CPT/HCPCS: 36415; 36569; 71045; 80048; 80053; 80076; 81001; 83605; 85025; 87040; 93005; 96365; 96367; 96376; C1751; G0378; J0692; J0696; J3370-JW; J3490; J7030; J7050; J7507

== ENCOUNTER 2023-03-02 21:49 | Inpatient (IN) | payer BC, OTHER ==
[2023-03-02 22:26] LABS: #Monocytes 0.5 thou/uL (0.11-0.59); #Neutrophils 7.3 thou/uL (1.40-6.50); %Basophils 0.4 % (0.0-1.0); %Eosinophils 0.2 % (0.0-10.0); %Lymphocytes 4.1 % (21.0-51.0); %Monocytes 6.1 % (0.0-10.0); Hematocrit 38.2 % (42.0-52.0); Hemoglobin 12.5 g/dL (14.0-18.0); Mean Corpuscular HGB CONC 32.7 g/dL (32.0-36.0); Mean Corpuscular Hemoglobin 29.1 pg (27.0-31.0); Mean Corpuscular Volume 88.8 fl (78.0-98.0); Mean Platelet Volume 10.5 fL (7.4-10.4); Platelet Count 125 10x3/uL (130-400); RBC Distribution Width 16.3 % (11.5-14.5); White Blood Cell (WBC) Count 8.2 10x3/uL (4.8-10.8)
[2023-03-02 22:40] LABS: ALT (SGPT) 38 U/L (8-55); AST (SGOT) 51 U/L (5-34); Albumin 3.4 g/dL (3.4-4.8); Alkaline Phosphatase 222 U/L (40-110); Anion Gap 15 mmol/L (10-20); BUN (Urea Nitrogen) 18 mg/dL (8.4-25.7); Bilirubin, Total 1.9 mg/dL (0.2-1.2); Calc. Creatinine Clearance 0 mL/min (70-130); Calcium 8.9 mg/dL (7.8-10.44); Carbon Dioxide 21 mmol/L (23-31); Chloride 100 mmol/L (98-107); Estimated GFR 33; Globulin 3.4 g/dL (2.4-3.5); Glucose 172 mg/dL (80-115); Potassium 3.6 mmol/L (3.5-5.1); Protein, Total 6.8 g/dL (5.8-8.1); Sodium 132 mmol/L (136-145)
[2023-03-02] MEDS ORDERED: Sodium Chloride 0.9% 100 ML ONE (23:13)
[2023-03-02] MEDS ORDERED: Cefepime 2 GM VIAL ONE (23:13)
[2023-03-03] MEDS ORDERED: Vancomycin 1 GM/200 ML (FROZEN) BAG ONE (00:11)
[2023-03-03] MEDS ORDERED: HYDROcodone/Acetaminophen 5/325 mg Tablet PO PRN (01:30)
[2023-03-03] MEDS ORDERED: Ondansetron ODT 4 MG TAB PO PRN (01:30)
[2023-03-03] MEDS ORDERED: Ondansetron PF 4 MG/2 ML Vial IVP PRN (01:30)
[2023-03-03 02:05] LABS: Delete Auto Diff?? YES; Hematocrit 34.3 % (42.0-52.0); Hemoglobin 10.6 g/dL (14.0-18.0); Manual Diff?? YES; Mean Corpuscular HGB CONC 30.9 g/dL (32.0-36.0); Mean Corpuscular Hemoglobin 28.8 pg (27.0-31.0); Mean Corpuscular Volume 93.2 fl (78.0-98.0); Mean Platelet Volume 11.5 fL (7.4-10.4); RBC Distribution Width 16.5 % (11.5-14.5); Red Blood Cell (RBC) Count 3.68 mill/uL (4.70-6.10)
[2023-03-03 02:06] LABS: Platelet Count 91 10x3/uL (130-400)
[2023-03-03] MEDS: Acetaminophen 325 MG TAB PO PRN ×2 (02:13→14:27)
[2023-03-03 02:14] LABS: Lactic Acid 2.1 mmol/L (0.5-2.2)
[2023-03-03 02:24] VITALS: BMI 23.7
[2023-03-03 02:52] LABS: ALT (SGPT) 35 U/L (8-55); AST (SGOT) 43 U/L (5-34); Albumin 2.9 g/dL (3.4-4.8); Alkaline Phosphatase 192 U/L (40-110); Anion Gap 17 mmol/L (10-20); BUN (Urea Nitrogen) 18 mg/dL (8.4-25.7); Bilirubin, Total 1.6 mg/dL (0.2-1.2); Calc. Creatinine Clearance 41 mL/min (70-130); Carbon Dioxide 18 mmol/L (23-31); Chloride 102 mmol/L (98-107); Estimated GFR 36; Globulin 3.1 g/dL (2.4-3.5); Glucose 105 mg/dL (80-115); Potassium 3.6 mmol/L (3.5-5.1); Sodium 133 mmol/L (136-145)
[2023-03-03] MEDS ORDERED: Vancomycin HCl 500 MG in Sodium Chloride 0.9% 100 ML IVPB SCH (03:00)
[2023-03-03 04:49] LABS: Anisocytosis SLIGHT = 6-15 cells HPF (0-5); Band 44 % (5-11); CellaVision Operator ID LAB.JMM; Large Platelets 8.8 % (0-5); Lymphocytes 8 % (21-51); Monocytes 2 % (0-10); Neutrophil 46 % (42-75); Ovalocytes SLIGHT = 2-5 cells HPF (0-1); Platelet Adequacy Comment Platelets Decreased; Polychromasia SLIGHT = 2-3 cells HPF (0-2); Total Cell Count 102
[2023-03-03] MEDS ORDERED: Sodium Chloride 0.9% 500 ML IV SCH (05:00)
[2023-03-03] MEDS ORDERED: Famotidine/PF 20 mg/2ml Vial SLOW IVP SCH (09:00)
[2023-03-03] MEDS ORDERED: Famotidine 20 MG TAB PO SCH (09:00)
[2023-03-03] MEDS ORDERED: Vancomycin (BATCH) 1.5 GM in Premix 1 BAG IVPB SCH (09:00)
[2023-03-03] MEDS ORDERED: Loperamide HCl 2 MG CAP PO PRN (09:38)
[2023-03-03] MEDS: Cefepime 1 GM in Sodium Chloride 0.9% 100 ML IVPB SCH ×2 (10:10→22:29)
[2023-03-03] MEDS ORDERED: Vancomycin HCl 125 MG Capsule PO SCH (12:00)
[2023-03-03 12:01] LABS: Bacteria/HPF None Seen HPF (None Seen); Bilirubin Negative (Negative); Blood, Urine Negative (Negative); CAUTI Indications for Culture Immunosuppressed; Clarity Turbid (Clear); Glucose, Urine (Dipstick) Normal (Negative); Ketone, Urine 10 mg/dL (Negative); Leukocyte Negative Leu/uL (Negative); Nitrite Negative (Negative); Protein, Urine (Dipstick) 30 mg/dL (Neg-Trace); RBC/HPF 0-3 HPF (0-3); Specific Gravity, Urine 1.027 (1.002-1.036); Squamous Epithelial 0-3 HPF (0-3); Urobilinogen Normal mg/dL (Less than 2)
[2023-03-03 12:30] LABS: Urine Culture Reflex Yes Yes
[2023-03-03] MEDS: Apixaban 5 MG TAB PO SCH (20:39)
[2023-03-03] MEDS: Magnesium Oxide 250 MG TAB PO SCH (20:39)
[2023-03-03] MEDS: Tacrolimus 1 MG CAP PO SCH (20:40)
[2023-03-03] MEDS ORDERED: Cabozantinib S-Malate [Cabometyx] 40 MG Tablet PO SCH (21:00)
[2023-03-03] MEDS ORDERED: Alirocumab [Praluent Pen] 75 MG/ML Pen.Injctr SC SCH (21:00)
[2023-03-04] MEDS ORDERED: Vancomycin (BATCH) 1.25 GM in Premix 1 BAG IVPB SCH (01:00)
[2023-03-04] MEDS: Levothyroxine 150 MCG TAB PO SCH (05:15)
[2023-03-04 06:31] LABS: Hematocrit 30.5 % (42.0-52.0); Hemoglobin 9.5 g/dL (14.0-18.0); Manual Diff?? YES; Mean Corpuscular HGB CONC 31.1 g/dL (32.0-36.0); Mean Corpuscular Hemoglobin 28.7 pg (27.0-31.0); Mean Corpuscular Volume 92.1 fl (78.0-98.0); RBC Distribution Width 16.3 % (11.5-14.5); Red Blood Cell (RBC) Count 3.31 mill/uL (4.70-6.10); White Blood Cell (WBC) Count 4.9 10x3/uL (4.8-10.8)
[2023-03-04 06:34] LABS: Platelet Count 76 10x3/uL (130-400)
[2023-03-04 06:35] LABS: Delete Auto Diff?? YES
[2023-03-04 06:56] LABS: ALT (SGPT) 28 U/L (8-55); AST (SGOT) 36 U/L (5-34); Albumin 2.8 g/dL (3.4-4.8); Alkaline Phosphatase 159 U/L (40-110); Anion Gap 13 mmol/L (10-20); BUN (Urea Nitrogen) 23 mg/dL (8.4-25.7); Bilirubin, Total 1.3 mg/dL (0.2-1.2); Calc. Creatinine Clearance 48 mL/min (70-130); Calcium 8.1 mg/dL (7.8-10.44); Carbon Dioxide 20 mmol/L (23-31); Chloride 104 mmol/L (98-107); Estimated GFR 43; Globulin 2.8 g/dL (2.4-3.5); Glucose 98 mg/dL (80-115); Potassium 3.5 mmol/L (3.5-5.1); Protein, Total 5.6 g/dL (5.8-8.1); Sodium 133 mmol/L (136-145)
[2023-03-04 08:38] LABS: Band 21 % (5-11); Burr Cells SLIGHT = 2-5 cells HPF (0-1); CellaVision Operator ID LAB.CMB; Eosinophils 8 % (0-10); Large Platelets 2.8 % (0-5); Lymphocytes 7 % (21-51); Macrocytosis SLIGHT = 6-15 cells HPF (0-5); Monocytes 1 % (0-10); Neutrophil 64 % (42-75); Ovalocytes SLIGHT = 2-5 cells HPF (0-1); Platelet Adequacy Comment Platelets Decreased; Polychromasia SLIGHT = 2-3 cells HPF (0-2); Total Cell Count 107
[2023-03-04] MEDS ORDERED: Multivitamin W/ Minerals 1 TAB PO SCH ×2 (09:00→21:00)
[2023-03-04] MEDS: Apixaban 5 MG TAB PO SCH ×2 (09:28→20:25)
[2023-03-04] MEDS: Cholecalciferol 1,000 UNITS (25 MCG) TAB PO SCH (09:29)
[2023-03-04] MEDS: Magnesium Oxide 250 MG TAB PO SCH ×2 (09:29→20:25)
[2023-03-04] MEDS: Tacrolimus 1 MG CAP PO SCH ×2 (09:30→20:25)
[2023-03-04] MEDS: Cefepime 1 GM in Sodium Chloride 0.9% 100 ML IVPB SCH ×2 (11:41→23:08)
[2023-03-04] MEDS ORDERED: REPATHA 140 MG/ML SC SCH (16:00)
[2023-03-04] MEDS: Calcium Carbonate 600 MG + Vit D TAB PO SCH (20:26)
[2023-03-04 23:56] LABS: Vancomycin, Trough 12.9 ug/mL
[2023-03-05] MEDS ORDERED: Vancomycin (BATCH) 1.5 GM in Premix 1 BAG IVPB SCH (01:00)
[2023-03-05] MEDS: Levothyroxine 150 MCG TAB PO SCH (06:05)
[2023-03-05 07:19] LABS: ALT (SGPT) 26 U/L (8-55); AST (SGOT) 37 U/L (5-34); Albumin 2.7 g/dL (3.4-4.8); Alkaline Phosphatase 155 U/L (40-110); Anion Gap 11 mmol/L (10-20); BUN (Urea Nitrogen) 13 mg/dL (8.4-25.7); Calc. Creatinine Clearance 74 mL/min (70-130); Calcium 8.3 mg/dL (7.8-10.44); Carbon Dioxide 23 mmol/L (23-31); Chloride 109 mmol/L (98-107); Estimated GFR 73; Glucose 89 mg/dL (80-115); Potassium 3.5 mmol/L (3.5-5.1); Protein, Total 5.7 g/dL (5.8-8.1); Sodium 139 mmol/L (136-145)
[2023-03-05 07:55] VITALS: BP 109/70; TEMP 98.1
[2023-03-05] MEDS: Apixaban 5 MG TAB PO SCH (09:20)
[2023-03-05] MEDS: Tacrolimus 1 MG CAP PO SCH (09:20)
[2023-03-05] MEDS: Magnesium Oxide 250 MG TAB PO SCH (09:21)
[2023-03-05] MEDS: Calcium Carbonate 600 MG + Vit D TAB PO SCH (09:21)
[2023-03-05] MEDS: Cholecalciferol 1,000 UNITS (25 MCG) TAB PO SCH ×2 (09:21→09:25)
[2023-03-05] MEDS: Cefepime 1 GM in Sodium Chloride 0.9% 100 ML IVPB SCH (11:37)
[2023-03-05 11:42] LABS: Adenovirus F 40-41 Not Detected (Not Detected); Astrovirus Not Detected (Not Detected); C. difficile toxin A+B DETECTED (Not Detected); Campylobacter by PCR Not Detected (Not Detected); Cryptosporidium Not Detected (Not Detected); Cyclospora cayetanensis Not Detected (Not Detected); Entamoeba histolytica Not Detected (Not Detected); Enteroaggregative E. coli Not Detected (Not Detected); Enteropathogenic E. coli Not Detected (Not Detected); Enterotoxigenic E. coli Not Detected (Not Detected); Giardia lamblia Not Detected (Not Detected); Norovirus GI-GII Not Detected (Not Detected); Plesiomonas shigelloides Not Detected (Not Detected); Rotavirus A Not Detected (Not Detected); Salmonella Not Detected (Not Detected); Sapovirus Not Detected (Not Detected); Shiga-toxin-producing E coli Not Detected (Not Detected); Shigella/Enteroinvasive E coli Not Detected (Not Detected); Vibrio Not Detected (Not Detected); Vibrio cholerae Not Detected (Not Detected); Yersinia enterocolitica Not Detected (Not Detected)
== END 2023-03-05 12:40 | disposition home or self-care (01) | DRG 872 ==
LOC: ERS 21:49 → T4-B 03-03 00:26 → OBSVTOIN 03-03 10:53
PROVIDERS: ADMIT Student in an Organized Health Care Education/Training Program; ATTEND Hospitalist
DX: A41.51 Sepsis due to Escherichia coli [E. coli] (principal); T86.49 Other complications of liver transplant; C80.2 Malignant neoplasm associated with transplanted organ; E87.1 Hypo-osmolality and hyponatremia; C78.7 Secondary malignant neoplasm of liver and intrahepatic bile duct; N17.9 Acute kidney failure, unspecified; D84.821 Immunodeficiency due to drugs; A04.72 Enterocolitis due to Clostridium difficile, not specified as recurrent; I82.4Y1 Acute embolism and thrombosis of unspecified deep veins of right proximal lower extremity; Z94.4 Liver transplant status; I95.9 Hypotension, unspecified; C61 Malignant neoplasm of prostate; N18.9 Chronic kidney disease, unspecified; E03.9 Hypothyroidism, unspecified; I25.2 Old myocardial infarction; Z79.890 Hormone replacement therapy; Z79.899 Other long term (current) drug therapy; Z79.82 Long term (current) use of aspirin; Z90.49 Acquired absence of other specified parts of digestive tract; Z90.89 Acquired absence of other organs; Z98.890 Other specified postprocedural states; Z79.01 Long term (current) use of anticoagulants
CPT/HCPCS: 36415; 71045; 80053; 80202; 81001; 83605; 85025; 87040; 87081; 87086; 87324; 87449; 87507; 87633; 93005; 96361; 96365; 96367; 96376; G0378; J0692; J3370; J3370-JW; J3490; J7030; J7507